=== PATIENT | male | born 2000 | race African-American/Black ===

== ENCOUNTER 2021-12-09 11:46 | Emergency (ER) | payer MEDICARE, OTHER ==
[~2021-12-09] VITALS: Ht 167.6 cm; Wt 75.0 kg
[2021-12-09 11:58] VITALS: BP 118/87
[2021-12-09] MEDS ORDERED: PENI500T MT ×3 (14:45→14:46)
== END 2021-12-09 14:53 | disposition home or self-care (01) ==
LOC: ER 11:46
DX: R68.84 Jaw pain (principal); Z98.890 Other specified postprocedural states; Z86.59 Personal history of other mental and behavioral disorders
CPT/HCPCS: 99283